=== PATIENT | male | born 1935 | race Caucasian/White ===

== ENCOUNTER 2017-11-26 22:39 | Emergency (ER) | payer OTHER, BC ==
[~2017-11-26] VITALS: Ht 177.8 cm; Wt 67.2 kg
[~2017-11-26 22:39] MED LIST: ACCUPRIL40 MG PO; DIGOX250 MCG PO; HYDROCHLOROTHIA25 MG PO; LIPITOR40 MG PO; LUMIGAN 0.50 DROP/22 RIGHT EYE; TOPROL XL50 MG PO; VITAMIN D2000 UNI1 PO; XARELTO20 MG PO
[2017-11-26 23:33] LABS: HEMATOCRIT 44.5 % (38.0-50.0); HEMOGLOBIN 14.6 G/DL (12.5-16.6); MCH 31.7 PG (29.0-34.0); MCHC 32.8 G/DL (30.0-36.0); MCV 96.7 FL (86-99); PLATELET COUNT 175 K/uL (156-360); RBC DIS.WIDTH-CV 13.2 % (11.8-14.6); WHITE BLOOD COUNT 11.9 K/uL (4.1-10.2)
[2017-11-26 23:39] LABS: CHLORIDE 99 mEq/L (99-109); POTASSIUM 4.2 mEq/L (3.7-5.4); SODIUM 138 mEq/L (136-147)
[2017-11-26 23:40] LABS: GLUCOSE 128 mg/dL (70-99)
[2017-11-26 23:44] LABS: CREATININE 0.9 mg/dL (0.6-1.3); GFR ESTIMATE (CALCULATED) > 59 mL/min/ (58.99-99999)
[2017-11-26 23:45] LABS: UREA NITROGEN (BUN) 29 mg/dL (9-23)
[2017-11-27 01:59] VITALS: BP 155/89
== END 2017-11-27 02:00 | disposition home or self-care (01) ==
LOC: EME → EDBD 22:39 → EME 11-27 02:00
PROVIDERS: Emergency Medicine
PROC: 0HQ1XZZ Repair Face Skin, External Approach (ICD-10-PCS; principal; 2017-11-26)
DX: S01.111A Laceration without foreign body of right eyelid and periocular area, initial encounter (principal); S00.31XA Abrasion of nose, initial encounter; W18.30XA Fall on same level, unspecified, initial encounter; I10 Essential (primary) hypertension; E11.9 Type 2 diabetes mellitus without complications; Z79.4 Long term (current) use of insulin; Z79.01 Long term (current) use of anticoagulants; Z85.9 Personal history of malignant neoplasm, unspecified
CPT/HCPCS: 70450; 80048; 82948; 85027; 99281; 99285